=== PATIENT | male | born 1980 | race Caucasian/White ===

== ENCOUNTER → 2018-07-15 11:07 | Outpatient (CLI) | payer SELFPAY ==
[2018-07-15 11:35] LABS: Carboxyhemoglobin Frac (CO) 2.1 % (0.0-1.5)
== END ==
DX: R42 Dizziness and giddiness (principal)
CPT/HCPCS: 82375

== ENCOUNTER 2022-11-13 01:26 | Emergency (ER) | payer BC, SELFPAY ==
[2022-11-13 01:27] VITALS: BP 152/98; PULSE 65; RESP 16; TEMP 36.8; O2SAT 97; BMI 26.3
--- NOTE | 2022-11-13 01:50 | EKG12_ITS ---
Test Reason : SOB Blood Pressure : / mmHG Vent. Rate : 057 BPM Atrial Rate : 057 BPM P-R Int : 176 ms QRS Dur : 094 ms QT Int : 426 ms P-R-T Axes : 052 023 020 degrees QTc Int : 414 ms Sinus bradycardia Otherwise normal ECG Confirmed by TORREY BEAUCHAMP, LOBITO ([id number]), makeup editor WILBERT ELMORE ([id number]) on 11/15/2022 12:21:54 PM Referred By: Confirmed By:LOBITO HIRSCH MD
[2022-11-13 02:16] LABS: Absolute Lymphocyte Count 1.25 X10^3/uL (0.83-4.51); Absolute Neutrophil Count 3.3 X10^3/uL (2.0-7.7); Basophil# 0.03 X10^3/uL; Basophil% 0.6 % (0-1); Eosinophil# 0.26 X10^3/uL; Eosinophils% 4.8 % (0-5); Hematocrit 45.5 % (40-54); Hemoglobin 15.1 g/dL (13.0-16.5); Lymphocyte # 1.25 X10^3/ul (0.83-4.51); Lymphocyte % 23.2 % (19-41); Mean Corp Hgb Conc 33.2 g/dL (32-36); Mean Corpuscular Hgb 30.9 pg (27.0-32.0); Mean Corpuscular Volume 93.2 fL (80-94); Monocyte# 0.55 X10^3/uL; Monocyte% 10.2 % (0-10); NRBC Flagged by Analyzer 0 % (0-5); Neutrophil # 3.27 X10^3/uL (2.7-7.7); Neutrophil % 60.8 % (47-70); Platelet Count 221 K/mm3 (150-450); RBC Distribution Width CV 12.1 % (11.6-14.6); RBC Distribution Width SD 41.6 fl (35.1-43.9); Red Blood Count 4.88 M/mm3 (4.6-6.2); White Blood Count 5.4 K/mm3 (4.4-11.0)
[2022-11-13 02:33] LABS: Anion Gap 7 (5-15); BUN 17 mg/dL (7-18); BUN/Creat Ratio 16.5 RATIO (10-20); Calcium,Total 9.1 mg/dL (8.5-10.1); Chloride 105 mmol/L (98-107); Creatinine, Serum 1.03 mg/dL (0.70-1.30); EST Glomerular Filtration Rate 84 mL/min (>60); Est Glom Filt Rate - Afr Amer 102 mL/min (>60); Estimated Creatinine Clearance 90.39 ml/min; Glucose 111 mg/dL (74-106); Magnesium 2.2 mg/dL (1.6-2.6); Sodium Level 139 mmol/L (136-145); Troponin-I HS 7 pg/mL (3.0-78.0)
--- NOTE | 2022-11-13 02:45 | RAD_ITS ---
INDICATION: dyspnea EXAMINATION/TECHNIQUE: X-RAY - XR Chest 2 Views COMPARISON: Two-view chest x-ray from 08/19/2016 FINDINGS: LINES/DEVICES: None. LUNGS: No pulmonary edema or focal airspace consolidation. No sizable pleural effusion. No pneumothorax detected. MEDIASTINUM AND CARDIOVASCULAR STRUCTURES: Heart size within normal limits. Mediastinal contours unremarkable. BONES AND SOFT TISSUES: No acute findings. RAD/Chest PA and Lateral IMPRESSION: No radiographic evidence of acute cardiopulmonary disease. Electronically Signed: Aiden Mosher MD at 3:15 EST ,
--- NOTE | 2022-11-13 03:41 | EX.ED.DYSGE1 ---
HPI History of Present Illness Chief Complaint: Shortness of Breath Narrative Narrative: Patient is a 42-year-old male with no significant reported past medical history. He states this evening he was sleeping when he awoke multiple times feeling short of breath. He states that he does not have significant nasal congestion drainage or cough. He denies any known history of sleep apnea. He states that as the symptoms kept recurring and he cannot sleep he was concerned that this could be cardiac in nature and therefore comes to the hospital for evaluation. PFSH PFSH Medical History no medical history no medical history Allergy/AdvReac Type Severity Reaction Status Date / Time No Known Allergies Allergy Verified 07/20/19 11:32 Social History (System 07/20/19 @ 11:32 by Jozef Dumont) Smoking Status: Never smoker ROS ROS ED Constitutional Constitutional ED: Denies chills or fever(s) ENT ENT ED: Denies rhinorrhea or sore throat Cardiovascular Cardiovascular: Reports chest pain; Denies palpitations or racing heartbeat Respiratory/Chest Respiratory/Chest: Reports dyspnea; Denies cough Gastrointestinal Gastrointestinal: Denies abdominal pain, diarrhea, nausea or vomiting Genitourinary Genitourinary ED: Denies dysuria Musculoskeletal Musculoskeletal: Denies myalgias Integumentary Denies rash Neurologic Neurologic: Denies headache(s) Psychiatric Psychiatric: Denies anxiety Hematologic/Lymphatic Hematologic/Lymphatic: Denies easy bleeding or easy bruising EXAM Physical Exam Const Vital Signs: 11/13/22 01:27 11/13/22 01:29 Temperature 98.2 F Temperature Source Oral Pulse Rate 65 Respiratory Rate 16 Respiratory Effort Short of Breath Blood Pressure 152/98 H Blood Pressure Mean 116 Pulse Ox 97 Oxygen Delivery Method Room Air Positive well nourished and well developed General Appearance ED: well developed HEENT Reports moist mucous membranes HEENT Narrative: No tongue or lip swelling no oral lesions no airway edema or compromise Eyes PERRL and EOMs intact bilaterally General Eye ED: Negative for pale conjunctiva Neck supple and no JVD Chest Wall palpation of chest normal Resp normal respiratory effort and clear to auscultation bilaterally Resp Narrative: No nasal flaring retractions tachypnea or accessory muscle use Cardio regular rate and regular rhythm Rate: other Other Details: Radial pulses are plus 2 out of 4 bilaterally are equal and symmetric GI normal to inspection, nondistended, normoactive bowel sounds, non-tender, non-distended and no masses Auscultation: normoactive bowel sounds Palpation: soft Extremity normal to inspection Extremity Narrative: No asymmetric edema no pitting edema negative Homans' sign bilaterally Neuro oriented x3 and CN's II-XII intact bilaterally Sensorium / Orientation: alert Psych mental status grossly normal Skin no rashes or lesions noted MDM MDM MDM Narrative Medical decision making narrative: Patient presented to the ER no acute respiratory distress satting in the high 90s on room air. He reported intermittent bouts of waking up with shortness of breath from sleep without congestion drainage or cough to suggest pneumonia or mucous plugging. He did not have nausea vomiting diaphoresis or chest discomfort but this could be cardiac in nature and therefore a basic cardiac work-up was obtained. H&H stable going against anemia as a cause of his symptoms and he has no severe electrolyte derangements or signs of acute kidney injury. Troponin was also normal at 7 and this coupled with his normal EKG and no significant risk factors for CAD I do not feel there is need for a delta troponin. Chest x-ray also revealed no acute lung pathology. Therefore at this time as his work-up reveals no acute findings and his vitals are stable he where he is not in respiratory distress or requiring supplemental oxygen is otherwise safe for discharge Lab Data Attestation: I reviewed the patient's lab results. Labs: Laboratory Results - last 24 hr 11/13/22 11/13/22 02:11 02:11 WBC 5.4 RBC 4.88 Hgb 15.1 Hct 45.5 MCV 93.2 MCH 30.9 MCHC 33.2 RDW Std Deviation 41.6 RDW Coeff of Sammy 12.1 Plt Count 221 MPV 10.0 Immature Gran % (Auto) 0.400 Neut % (Auto) 60.8 Lymph % (Auto) 23.2 [place] % (Auto) 10.2 H Eos % (Auto) 4.8 Baso % (Auto) 0.6 Absolute Neuts (auto) 3.3 Absolute Lymphs (auto) 1.25 Nucleated RBC % 0 Sodium 139 Potassium 4.0 Chloride 105 Carbon Dioxide 27.0 Anion Gap 7 BUN 17 Creatinine 1.03 Estim Creat Clear Calc 90.39 Est GFR (MDRD) Af Amer 102 Est GFR (MDRD) Non-Af 84 BUN/Creatinine Ratio 16.5 Glucose 111 H Calcium 9.1 Magnesium 2.2 Troponin I High Sens 7 Radiography Diagnostic Testing: Clinical Impression(s) from Imaging Studies Chest X-Ray 11/13/22 02:45 IMPRESSION: No radiographic evidence of acute cardiopulmonary disease. Electronically Signed: Aiden Mosher MD at 3:15 EST , 2 view chest x-ray is interpreted by the emergency medicine physician reveals no acute infiltrate pneumothorax or pleural effusion Discharge Plan Triage Chief Complaint: Shortness of Breath ED Provider: Jas West Dx/Rx/DC Orders Clinical Impression: Dyspnea Instructions: ED Dyspnea Primary Care Provider: Aiden Rich Referrals: Aiden Rich MD [Primary Care Provider] - Activity Restrictions/Additional Instructions: Please return to the ER should you have any further concerns and follow-up with your family doctor for repeat evaluation Disposition Disposition: Home, Self Care
[2022-11-13 03:56] VITALS: BP 130/81; PULSE 66; RESP 16; O2SAT 97
== END 2022-11-13 03:58 | disposition home or self-care (01) ==
PROVIDERS: Emergency Provider Emergency Medicine; PCP Family Medicine; Visit Provider Emergency Medicine
DX: R06.00 Dyspnea, unspecified (principal); G47.30 Sleep apnea, unspecified
CPT/HCPCS: 71046; 80048; 83735; 84484; 85025; 93005; 99283; A4216